=== PATIENT | female | born 1970 | race Two or more races ===

== ENCOUNTER 2017-05-13 12:13 | Inpatient (IN) | payer BC ==
[~2017-05-13] VITALS: Ht 162.6 cm; Wt 122.3 kg
[2017-05-13] MEDS ORDERED: GLIPIZIDE10 MG PO (12:26)
[2017-05-13] MEDS ORDERED: AMLODIPINE BESYL5 MG PO (12:26)
[2017-05-13] MEDS ORDERED: METFORMIN HCL500 MG PO (12:26)
[2017-05-13] MEDS ORDERED: ALTACE5 MG PO (12:27)
[2017-05-13 12:53] LABS: BASOPHIL (%) 0.3 % (0-1); EOSINOPHIL (%) 0.2 % (0-5); HEMATOCRIT 30.9 % (36.0-46.0); IMMATURE GRANULOCYTE (%) 0.2 % (0.0-0.7); LYMPHOCYTE (%) 17.5 % (15-42); LYMPHOCYTE COUNT 1.5 K/uL (1.0-2.8); MCH 20.4 PG (29.0-34.0); MCHC 29.1 G/DL (30.0-36.0); MCV 69.9 FL (83-99); MONOCYTE COUNT 0.4 K/uL (0-0.8); NEUTROPHIL (%) 76.8 % (45-76); NEUTROPHIL COUNT 6.6 K/uL (1.8-6.4); PLATELET COUNT 455 K/uL (156-360); RBC DIS.WIDTH-CV 15.9 % (11.8-14.6); RBC DIS.WIDTH-SD 39.2 % (39-53); RED BLOOD COUNT 4.42 M/uL (3.80-5.20); WHITE BLOOD COUNT 8.6 K/uL (4.1-10.2)
[2017-05-13 12:55] LABS: ALBUMIN 3.8 g/dL (3.2-4.8); CHLORIDE 102 mEq/L (99-109); SODIUM 135 mEq/L (136-147)
[2017-05-13 12:56] LABS: MAGNESIUM 1.6 mg/dL (1.3-2.7)
[2017-05-13 12:57] LABS: GLUCOSE 398 mg/dL (70-99); TOTAL PROTEIN 7.2 g/dL (6.4-8.3)
[2017-05-13 12:59] LABS: TOTAL BILIRUBIN 0.4 mg/dL (0.0-1.0)
[2017-05-13 13:01] LABS: CREATININE 0.8 mg/dL (0.6-1.3); GFR ESTIMATE (CALCULATED) > 59 mL/min/
[2017-05-13 13:03] LABS: AST (GOT) 12 IU/L (2-34)
[2017-05-13 13:05] LABS: ALKALINE PHOSPHATASE 104 IU/L (3-129)
[2017-05-13 13:07] LABS: TROP-I INTERPRETATION NEGATIVE; TROPONIN-I 0.06 ng/mL (0.0-0.30); UREA NITROGEN (BUN) 11 mg/dL (9-23)
[2017-05-13 13:09] LABS: ALT (GPT) 11 IU/L (3-49)
[2017-05-13 14:24] LABS: QUANTITATIVE HCG < 4.0 MIU/ML
[2017-05-13 16:30] LABS: INTER. NORMALIZED RATIO 1.2
[2017-05-13 16:33] LABS: PTT 25.6 SEC (25-37)
[2017-05-13] MEDS ORDERED: ADVIL200 MG PO (16:50)
[2017-05-13] MEDS ORDERED: GLUCOTROL XL10 MG PO (16:50)
[2017-05-13] MEDS ORDERED: MUCINEX600 MG PO (16:51)
[2017-05-13 18:36] VITALS: BP 162/91
[2017-05-14] VITALS: BP 100/58
[2017-05-14 04:02] VITALS: BP 130/78
[2017-05-14 06:35] LABS: BASOPHIL (%) 0.3 % (0-1); EOSINOPHIL (%) 0.3 % (0-5); HEMATOCRIT 29.4 % (36.0-46.0); HEMOGLOBIN 8.5 G/DL (11.9-15.5); IMMATURE GRANULOCYTE (%) 0.3 % (0.0-0.7); LYMPHOCYTE (%) 26.7 % (15-42); LYMPHOCYTE COUNT 2.4 K/uL (1.0-2.8); MCH 20.6 PG (29.0-34.0); MCHC 28.9 G/DL (30.0-36.0); MCV 71.2 FL (83-99); MONOCYTE (%) 5.1 % (3-12); MONOCYTE COUNT 0.5 K/uL (0-0.8); NEUTROPHIL (%) 67.3 % (45-76); PLATELET COUNT 474 K/uL (156-360); RBC DIS.WIDTH-CV 16.2 % (11.8-14.6); RBC DIS.WIDTH-SD 41.4 % (39-53); RED BLOOD COUNT 4.13 M/uL (3.80-5.20); WHITE BLOOD COUNT 8.9 K/uL (4.1-10.2)
[2017-05-14 07:30] VITALS: BP 145/101
[2017-05-14 07:35] LABS: CHLORIDE 99 MEQ/L (99-109); CREATININE 0.6 MG/DL (0.6-1.3); GFR ESTIMATE (CALCULATED) > 59 mL/min/; GLUCOSE 331 mg/dL (70-99); SODIUM 133 MEQ/L (136-147); UREA NITROGEN (BUN) 11 mg/dL (9-23)
[2017-05-14 09:05] LABS: HEMOGLOBIN A1c (GLYCOHEMOGLOB) 11.9 % (Below 5.7)
[2017-05-14 09:18] LABS: RETICULOCYTE COUNT 2.3 % (0.5-1.8)
[2017-05-14 10:14] LABS: FOLIC ACID (FOLATE) 10.3 NG/ML (5.0-22.0)
[2017-05-14 10:26] LABS: FERRITIN 9 NG/ML (10-291)
[2017-05-14 11:48] LABS: IRON 21 MCG/DL (35-150); TRANSFERRIN (TIBC) 343.1 mg/dL (215-380); TRANSFERRIN SATUR. 6 % (20-55)
[2017-05-14 11:59] VITALS: BP 148/90
[2017-05-14 19:39] VITALS: BP 135/95
[2017-05-15 00:01] VITALS: BP 124/82
[2017-05-15 04:05] VITALS: BP 126/83
[2017-05-15 06:10] LABS: BASOPHIL (%) 0.4 % (0-1); EOSINOPHIL (%) 0.7 % (0-5); EOSINOPHIL COUNT 0.1 K/uL (0-0.3); HEMATOCRIT 30.1 % (36.0-46.0); HEMOGLOBIN 8.5 G/DL (11.9-15.5); IMMATURE GRANULOCYTE (%) 0.5 % (0.0-0.7); LYMPHOCYTE (%) 33.9 % (15-42); LYMPHOCYTE COUNT 2.9 K/uL (1.0-2.8); MCH 19.9 PG (29.0-34.0); MCHC 28.2 G/DL (30.0-36.0); MCV 70.3 FL (83-99); MONOCYTE (%) 7.2 % (3-12); MONOCYTE COUNT 0.6 K/uL (0-0.8); NEUTROPHIL (%) 57.3 % (45-76); NEUTROPHIL COUNT 4.9 K/uL (1.8-6.4); PLATELET COUNT 466 K/uL (156-360); RBC DIS.WIDTH-CV 16.3 % (11.8-14.6); RBC DIS.WIDTH-SD 41.1 % (39-53); RED BLOOD COUNT 4.28 M/uL (3.80-5.20); WHITE BLOOD COUNT 8.5 K/uL (4.1-10.2)
[2017-05-15 06:14] LABS: ALBUMIN 3.4 G/DL (3.2-4.8); ALKALINE PHOSPHATASE 78 IU/L (3-129); ALT (GPT) 8 IU/L (3-49); AST (GOT) 8 IU/L (2-34); CHLORIDE 103 MEQ/L (99-109); CREATININE 0.6 MG/DL (0.6-1.3); GFR ESTIMATE (CALCULATED) > 59 mL/min/; GLUCOSE 192 mg/dL (70-99); POTASSIUM 3.5 MEQ/L (3.7-5.4); SODIUM 137 MEQ/L (136-147); TOTAL BILIRUBIN 0.3 MG/DL (0.0-1.0); TOTAL PROTEIN 6.1 G/DL (6.4-8.3); UREA NITROGEN (BUN) 7 mg/dL (9-23)
[2017-05-15 07:01] VITALS: BP 146/70
[2017-05-15 11:07] VITALS: BP 115/62
[2017-05-15 13:22] LABS: INTER. NORMALIZED RATIO 1.2
[2017-05-15 13:58] LABS: PTT 81.2 SEC (25-37)
[2017-05-15 15:12] VITALS: BP 142/72
[2017-05-15 19:30] VITALS: BP 138/66
[2017-05-16 00:17] VITALS: BP 112/61
[2017-05-16 02:47] LABS: ALBUMIN 3.6 g/dL (3.2-4.8); CHLORIDE 104 mEq/L (99-109); INTER. NORMALIZED RATIO 1.2; POTASSIUM 3.8 mEq/L (3.7-5.4); SODIUM 136 mEq/L (136-147)
[2017-05-16 02:50] LABS: GLUCOSE 255 mg/dL (70-99); TOTAL PROTEIN 6.3 g/dL (6.4-8.3)
[2017-05-16 02:53] LABS: ALKALINE PHOSPHATASE 87 IU/L (3-129); CREATININE 0.8 mg/dL (0.6-1.3); GFR ESTIMATE (CALCULATED) > 59 mL/min/
[2017-05-16 02:54] LABS: UREA NITROGEN (BUN) 13 mg/dL (9-23)
[2017-05-16 02:55] LABS: AST (GOT) 9 IU/L (2-34); TOTAL BILIRUBIN 0.3 mg/dL (0.0-1.0)
[2017-05-16 02:56] LABS: ALT (GPT) 10 IU/L (3-49)
[2017-05-16 02:58] LABS: BASOPHIL (%) 0.3 % (0-1); EOSINOPHIL (%) 0.6 % (0-5); EOSINOPHIL COUNT 0.1 K/uL (0-0.3); HEMATOCRIT 29.1 % (36.0-46.0); HEMOGLOBIN 8.4 G/DL (11.9-15.5); IMMATURE GRANULOCYTE (%) 0.6 % (0.0-0.7); LYMPHOCYTE (%) 33.3 % (15-42); LYMPHOCYTE COUNT 2.9 K/uL (1.0-2.8); MCH 20.3 PG (29.0-34.0); MCHC 28.9 G/DL (30.0-36.0); MCV 70.3 FL (83-99); MONOCYTE (%) 7.1 % (3-12); MONOCYTE COUNT 0.6 K/uL (0-0.8); NEUTROPHIL (%) 58.1 % (45-76); NEUTROPHIL COUNT 5.1 K/uL (1.8-6.4); PLATELET COUNT 470 K/uL (156-360); RBC DIS.WIDTH-CV 16.3 % (11.8-14.6); RBC DIS.WIDTH-SD 41.6 % (39-53); RED BLOOD COUNT 4.14 M/uL (3.80-5.20); WHITE BLOOD COUNT 8.8 K/uL (4.1-10.2)
[2017-05-16 07:02] VITALS: BP 145/69
[2017-05-16 15:02] VITALS: BP 126/84
[2017-05-16 23:38] VITALS: BP 96/54
[2017-05-17 06:37] LABS: INTER. NORMALIZED RATIO 1.2
[2017-05-17 06:40] LABS: PTT 65.2 SEC (25-37)
[2017-05-17 06:50] LABS: CHLORIDE 104 MEQ/L (99-109); CREATININE 0.6 MG/DL (0.6-1.3); GFR ESTIMATE (CALCULATED) > 59 mL/min/; GLUCOSE 164 mg/dL (70-99); POTASSIUM 3.5 MEQ/L (3.7-5.4); SODIUM 136 MEQ/L (136-147); UREA NITROGEN (BUN) 9 mg/dL (9-23)
[2017-05-17 06:53] LABS: BASOPHIL (%) 0.4 % (0-1); EOSINOPHIL COUNT 0.1 K/uL (0-0.3); HEMATOCRIT 28.7 % (36.0-46.0); HEMOGLOBIN 8.2 G/DL (11.9-15.5); LYMPHOCYTE (%) 32.8 % (15-42); MCH 20.3 PG (29.0-34.0); MCHC 28.6 G/DL (30.0-36.0); MCV 71.2 FL (83-99); MONOCYTE (%) 8.6 % (3-12); MONOCYTE COUNT 0.8 K/uL (0-0.8); NEUTROPHIL (%) 56.2 % (45-76); NEUTROPHIL COUNT 5.2 K/uL (1.8-6.4); PLATELET COUNT 472 K/uL (156-360); RBC DIS.WIDTH-CV 16.5 % (11.8-14.6); RBC DIS.WIDTH-SD 42.2 % (39-53); RED BLOOD COUNT 4.03 M/uL (3.80-5.20); WHITE BLOOD COUNT 9.2 K/uL (4.1-10.2)
[2017-05-17 08:01] VITALS: BP 116/58
[2017-05-17 12:19] LABS: MAGNESIUM 1.7 mg/dl (1.3-2.7)
[2017-05-17] MEDS ORDERED: LOVENOX120 MG/0.8 SC (15:19)
[2017-05-17 17:01] VITALS: BP 113/63
[2017-05-17 22:00] VITALS: BP 108/50
[2017-05-18 00:19] VITALS: BP 95/60
[2017-05-18 04:00] VITALS: BP 111/64
[2017-05-18 06:51] LABS: INTER. NORMALIZED RATIO 1.5
[2017-05-18 06:56] LABS: BASOPHIL (%) 0.2 % (0-1); EOSINOPHIL (%) 0.5 % (0-5); HEMATOCRIT 28.9 % (36.0-46.0); HEMOGLOBIN 8.1 G/DL (11.9-15.5); IMMATURE GRANULOCYTE (%) 0.4 % (0.0-0.7); LYMPHOCYTE (%) 25.6 % (15-42); LYMPHOCYTE COUNT 2.2 K/uL (1.0-2.8); MCH 20.3 PG (29.0-34.0); MCV 72.4 FL (83-99); MONOCYTE (%) 7.3 % (3-12); MONOCYTE COUNT 0.6 K/uL (0-0.8); NEUTROPHIL COUNT 5.5 K/uL (1.8-6.4); PLATELET COUNT 477 K/uL (156-360); RBC DIS.WIDTH-CV 16.7 % (11.8-14.6); RBC DIS.WIDTH-SD 43.2 % (39-53); RED BLOOD COUNT 3.99 M/uL (3.80-5.20); WHITE BLOOD COUNT 8.4 K/uL (4.1-10.2)
[2017-05-18 07:05] LABS: CHLORIDE 101 MEQ/L (99-109); CREATININE 0.6 MG/DL (0.6-1.3); GFR ESTIMATE (CALCULATED) > 59 mL/min/; SODIUM 134 MEQ/L (136-147); UREA NITROGEN (BUN) 11 mg/dL (9-23)
[2017-05-18 07:09] LABS: GLUCOSE 262 mg/dL (70-99)
[2017-05-18 07:10] LABS: POTASSIUM 4.7 MEQ/L (3.7-5.4)
[2017-05-18 08:42] VITALS: BP 120/66
[2017-05-18 12:02] VITALS: BP 133/68
[2017-05-18 15:56] VITALS: BP 135/73; BP 135/78; BP 142/82
[2017-05-18 20:23] LABS: STOOL OCCULT BLD 1ST SPECIMEN NEGATIVE
[2017-05-18 21:38] VITALS: BP 113/55
[2017-05-19 00:21] VITALS: BP 117/56
[2017-05-19 04:42] VITALS: BP 118/70
[2017-05-19 06:31] LABS: BASOPHIL (%) 0.5 % (0-1); EOSINOPHIL (%) 1.8 % (0-5); EOSINOPHIL COUNT 0.1 K/uL (0-0.3); HEMATOCRIT 28.6 % (36.0-46.0); HEMOGLOBIN 8.1 G/DL (11.9-15.5); IMMATURE GRANULOCYTE (%) 0.5 % (0.0-0.7); LYMPHOCYTE (%) 38.1 % (15-42); LYMPHOCYTE COUNT 2.3 K/uL (1.0-2.8); MCH 20.4 PG (29.0-34.0); MCHC 28.3 G/DL (30.0-36.0); MCV 71.9 FL (83-99); MONOCYTE (%) 8.2 % (3-12); MONOCYTE COUNT 0.5 K/uL (0-0.8); NEUTROPHIL (%) 50.9 % (45-76); NEUTROPHIL COUNT 3.1 K/uL (1.8-6.4); PLATELET COUNT 436 K/uL (156-360); RBC DIS.WIDTH-CV 16.8 % (11.8-14.6); RBC DIS.WIDTH-SD 42.7 % (39-53); RED BLOOD COUNT 3.98 M/uL (3.80-5.20); WHITE BLOOD COUNT 6.1 K/uL (4.1-10.2)
[2017-05-19 06:33] LABS: INTER. NORMALIZED RATIO 1.9
[2017-05-19 06:51] LABS: ALBUMIN 3.3 G/DL (3.2-4.8); ALKALINE PHOSPHATASE 75 IU/L (3-129); ALT (GPT) 7 IU/L (3-49); AST (GOT) 8 IU/L (2-34); CHLORIDE 104 MEQ/L (99-109); CREATININE 0.6 MG/DL (0.6-1.3); GFR ESTIMATE (CALCULATED) > 59 mL/min/; GLUCOSE 137 mg/dL (70-99); POTASSIUM 4.3 MEQ/L (3.7-5.4); SODIUM 139 MEQ/L (136-147); TOTAL BILIRUBIN 0.3 MG/DL (0.0-1.0); TOTAL PROTEIN 6.1 G/DL (6.4-8.3); UREA NITROGEN (BUN) 12 mg/dL (9-23)
[2017-05-19 07:33] VITALS: BP 109/67
[2017-05-19 11:07] VITALS: BP 131/74
[2017-05-19] MEDS ORDERED: LOPRESSOR25 MG PO (12:44)
[2017-05-19] MEDS ORDERED: ADVAIR HFA120 INHALA IH (12:44)
[2017-05-19] MEDS ORDERED: LEVEMIR100 UNIT/2 SC (12:44)
[2017-05-19] MEDS ORDERED: VENTOLIN HFA18 GM IH (12:44)
[2017-05-19] MEDS ORDERED: FERROUS SULFAT325 MG PO (12:44)
[2017-05-19] MEDS ORDERED: CYANOCOBALAM1000 MCG PO (12:44)
[2017-05-19] MEDS ORDERED: 1ST TIER UNILE1 EAC1 MC (12:52)
[2017-05-19] MEDS ORDERED: NOVOLOG 10100 UNITS/ SC (12:52)
[2017-05-19] MEDS ORDERED: GLUCOMETER MC (12:52)
[2017-05-19] MEDS ORDERED: LOVENOX120 MG/0.8 SC (13:03)
[2017-05-19] MEDS ORDERED: COUMADIN5 MG PO ×2 (13:06→13:07)
[2017-05-19 15:07] VITALS: BP 144/79
== END 2017-05-19 16:43 | disposition home or self-care (01) | DRG 175 ==
LOC: EME 12:13 → EDOF 16:46 → 5SOUTH 16:46 → ENRESERV 16:47 → 5SOUTH 18:01
PROVIDERS: Emergency Medicine; Hospitalist
DX: I26.99 Other pulmonary embolism without acute cor pulmonale (principal); J96.01 Acute respiratory failure with hypoxia; I82.411 Acute embolism and thrombosis of right femoral vein; I82.431 Acute embolism and thrombosis of right popliteal vein; I82.441 Acute embolism and thrombosis of right tibial vein; I82.491 Acute embolism and thrombosis of other specified deep vein of right lower extremity; J20.9 Acute bronchitis, unspecified; E11.65 Type 2 diabetes mellitus with hyperglycemia; D64.9 Anemia, unspecified; N92.6 Irregular menstruation, unspecified; E66.01 Morbid (severe) obesity due to excess calories; Z68.42 Body mass index [BMI] 45.0-49.9, adult; I10 Essential (primary) hypertension; M79.1 Myalgia; M25.569 Pain in unspecified knee; K21.9 Gastro-esophageal reflux disease without esophagitis; Z72.3 Lack of physical exercise; Z87.01 Personal history of pneumonia (recurrent); Z79.84 Long term (current) use of oral hypoglycemic drugs; Z83.3 Family history of diabetes mellitus
CPT/HCPCS: 71046; 71275; 74176; 80048; 80053; 82272; 82607; 82728; 82746; 82948; 83036; 83540; 83735; 83880; 84466; 84484; 84702; 85025; 85027; 85046; 85610; 85730; 93005; 93306; 93970; 94640; 94640 76; 94799; 99202; 99281; 99285; J1650; J1815; J7030